=== PATIENT | female | born 1965 | race Caucasian/White ===

== ENCOUNTER 2017-03-29 15:27 | Emergency (ER) | payer BC, MEDICARE ==
[2017-03-29 15:50] VITALS: BP 115/67
--- NOTE | 2017-03-29 17:37 | UC ---
Skin Complaint HPI - HPI Summary HPI Summary: Pt presents with c/o of insect bite to left facial cheek that she got yesterday while working in garden. pt took one tab benadryl last night but reports that pruitis is worsening and swelling is not improving. - History of Current Complaint Chief Complaint: UCSkin Time Seen by Provider: 03/29/17 16:37 Stated Complaint: BITE ON LEFT FACE Hx Obtained From: Patient ?: No Onset/Duration: Sudden Onset, Still Present, Worse Since - onset Skin Exposure Onset/Duration: Days Ago - 1 Onset Severity: Mild Current Severity: Mild Pain Intensity: 0 Pain Scale Used: 0-10 Numeric Location: Discrete, Face Character: Swelling, Pruritus, Hives Aggravating Factor(s): Touch Alleviating Factor(s): Unknown Associated Signs & Symptoms: Positive: Tenderness Related History: Insect Bite/Sting - Allergy/Home Medications Allergies/Adverse Reactions: Allergies Allergy/AdvReac Type Severity Reaction Status Date / Time Niacin [From Niaspan] Allergy Unknown Verified 03/29/17 15:50 Reaction Details Home Medications: Home Medications Atorvastatin* [Lipitor 80 MG*] 80 mg PO DAILY 03/29/17 [History Confirmed ] Canagliflozin (NF) [Invokana (NF)] 100 mg PO DAILY 03/29/17 [History Confirmed 03/29/17] Fenofibrate(NF) [Tricor(NF)] 145 mg PO DAILY 03/29/17 [History Confirmed ] Folic Acid TAB* [Folvite TAB*] 1 mg PO DAILY 03/29/17 [History Confirmed ] Losartan TAB* [Cozaar TAB*] 50 mg PO DAILY 03/29/17 [History Confirmed 03/29/17] PARoxetine HCL TAB* [Paxil TAB*] 40 mg PO DAILY 03/29/17 [History Confirmed ] busPIRone TAB* [Buspar TAB*] 7.5 mg PO BID 03/29/17 [History Confirmed 03/29/17] inFLIXimab* [Remicade*] 300 mg IV SEE INSTRUCTIONS 03/29/17 [History Confirmed 03/29/17] Review of Systems Constitutional: Negative Skin: Other - urticaria, left cheek Eyes: Negative ENT: Negative Respiratory: Negative Cardiovascular: Negative Gastrointestinal: Negative Genitourinary: Negative Motor: Negative Neurovascular: Negative Musculoskeletal: Negative Neurological: Negative Psychological: Negative Is Patient Immunocompromised?: No All Other Systems Reviewed And Are Negative: Yes PMH/Surg Hx/FS Hx/Imm Hx Previously Healthy: Yes - Surgical History Surgical History: Yes Surgery Procedure, Year, and Place: LT SHOULDER ARTHROSCOPY X 2, PARTIAL HYSTERECTOMY, TUBAL LIGATION, LUMPECTOMY RT GROIN, LT KNEE ARTHROSCOPY X 2, RT KNEE ARTHROSCOPY X 2, APPENDECTOMY, TRIGGER FINGER RELEASE - Family History Known Family History: Positive: Cardiac Disease - Social History Occupation: Employed Full-time Lives: With Family Alcohol Use: None Substance Use Type: None Smoking Status (MU): Former Smoker Type: Cigarettes Have You Smoked in the Last Year: No Physical Exam Triage Information Reviewed: Yes Appearance: Well-Appearing Vital Signs: Initial Vital Signs Temp 97.4 F 03/29/17 15:46 Pulse 78 03/29/17 15:46 Resp 16 03/29/17 15:46 BP 115/67 03/29/17 15:46 Pulse Ox 100 03/29/17 15:46 Vital Signs Reviewed: Yes Eye Exam: Normal ENT Exam: Normal Dental Exam: Normal Neck exam: Normal Respiratory Exam: Normal Cardiovascular Exam: Normal Musculoskeletal Exam: Normal Neurological Exam: Normal Psychological Exam: Normal Skin Exam: Other - quarter size raised hive with a generalized mild swelling surround hive on left side facial cheek. Course/Dx - Differential Diagnoses - Skin Complaint Differential Diagnoses: Local Allergic Reaction, Urticaria - Diagnoses Provider Diagnoses: insect bite. localized reaction. urticaria left facial cheek Discharge - Discharge Plan Condition: Stable Disposition: HOME Prescriptions: Cetirizine HCl [Zyrtec Allergy 10 MG TAB] 10 mg PO DAILY #7 tab predniSONE TAB* [Deltasone TAB*] 30 mg PO DAILY #9 tab Patient Education Materials: Urticaria (ED) Referrals: ASH Reyes [Primary Care Provider] - If Needed
== END 2017-03-29 16:49 | disposition home or self-care (01) ==
LOC: UCCORT 15:27
DX: S00.86XA Insect bite (nonvenomous) of other part of head, initial encounter (principal); L50.9 Urticaria, unspecified; W57.XXXA Bitten or stung by nonvenomous insect and other nonvenomous arthropods, initial encounter; Z88.8 Allergy status to other drugs, medicaments and biological substances; Z87.891 Personal history of nicotine dependence
CPT/HCPCS: 99212; G0463